=== PATIENT | male | born 1945 | race Caucasian/White ===

== ENCOUNTER 2017-07-09 08:11 | Inpatient (IN) ==
[2017-07-01 14:39] LABS: HEMATOCRIT 34.1 % (42.0-52.0); HEMOGLOBIN 11.5 g/dL (14.0-18.0); MCH 33.1 PG (27-31); MCHC 33.7 g/dL (33-37); MCV 98.3 FL (81-99); MPV 9.3 FL (7.4-10.4); RBC 3.47 XMIL (4.7-6.1)
[2017-07-01 15:16] LABS: AGAP 9; BUN 18 mg/dL (8-22); CALCIUM 9.5 mg/dL (8.8-10.2); CHLORIDE 99 mmol/L (98-107); COSMO 274; POTASSIUM 4.1 mmol/L (3.5-5.1); SODIUM 136 mmol/L (136-145); TCO2 28 mmol/L (25-35)
[2017-07-09] MEDS ORDERED: REGLAN ONE ×2 (08:12)
[2017-07-09] MEDS ORDERED: KEFZOL 2 GM/D5W 2 GM/50 ML IVPB ONE ×2 (08:12)
[2017-07-09] MEDS ORDERED: LR 1,000 ML ONE ×3 (08:12→09:23)
[2017-07-09] MEDS ORDERED: PEPCID ONE ×2 (08:12)
[2017-07-09] MEDS ORDERED: XYLOCAINE-MPF 2% ONE (08:21)
[2017-07-09] MEDS ORDERED: QUELICIN (DOSE) ONE (08:21)
[2017-07-09] MEDS ORDERED: SODIUM CHLORIDE 0.9% 10 ML ONE ×2 (08:21→13:39)
[2017-07-09] MEDS ORDERED: NORCURON ONE ×2 (08:21→13:39)
[2017-07-09] MEDS ORDERED: ROBINUL ONE ×2 (08:21→11:50)
[2017-07-09] MEDS ORDERED: FENTANYL ONE (08:22)
[2017-07-09] MEDS ORDERED: DIPRIVAN 1% ONE (08:22)
[2017-07-09] MEDS ORDERED: B & O 16A SUPP ONE (09:23)
[2017-07-09] MEDS ORDERED: MARCAINE 0.25% PF ONE (09:23)
[2017-07-09] MEDS ORDERED: OFIRMEV 1000 MG/ISOTONIC SOLN 1,000 MG/100 ML BOTTLE ONE (10:33)
[2017-07-09 11:10] LABS: URINE MICRO REVIEW NEEDED? NO; URINE SOURCE CATH
[2017-07-09 11:17] LABS: BILIRUBIN URINE NEGATIVE (NEGATIVE); BLOOD URINE NEGATIVE (NEGATIVE); COLOR YELLOW; GLUCOSE URINE NEGATIVE (NEGATIVE); LEUKOCYTES URINE NEGATIVE (NEGATIVE); NITRITE URINE NEGATIVE (NEGATIVE); PH URINE 7.5; PROTEIN URINE NEGATIVE (NEGATIVE); SP GRAVITY URINE 1.011; TURBIDITY URINE CLEAR (CLEAR); UROBILINOGEN URINE NORMAL (NORMAL)
[2017-07-09 11:18] LABS: UR EPITHELIAL CELLS <10 /HPF (<10); URINE BACTERIA NEGATIVE /HPF; URINE RBC <10 /HPF (<10); URINE WBC <10 /HPF (<10)
[2017-07-09] MEDS ORDERED: NEOSTIGMINE ONE (11:50)
[2017-07-09] MEDS ORDERED: DECADRON ONE (11:50)
[2017-07-09] MEDS ORDERED: ZOFRAN ONE (11:50)
[2017-07-09] MEDS ORDERED: DILAUDID ONE (15:20)
[2017-07-09] MEDS ORDERED: NS 1,000 ML ONE (15:42)
[2017-07-09] MEDS ORDERED: PHENERGAN PO PRN (16:26)
[2017-07-09] MEDS ORDERED: BENADRYL IV PRN (16:26)
[2017-07-09] MEDS ORDERED: PHENERGAN IV PRN (16:26)
[2017-07-09] MEDS ORDERED: BENADRYL LIQUID PO PRN (16:26)
[2017-07-09] MEDS ORDERED: SODIUM CHLORIDE 0.9% INJ PRN (16:26)
[2017-07-09] MEDS ORDERED: DITROPAN PO PRN (16:26)
[2017-07-09] MEDS ORDERED: LABETALOL IV PRN (16:26)
[2017-07-09] MEDS ORDERED: PHENERGAN PR PRN (16:26)
[2017-07-09] MEDS: HUMULIN R SUBQ SCH ×2 (17:59→21:51)
[2017-07-09] MEDS: NS 1,000 ML IV SCH (18:00)
[2017-07-09] MEDS: OXY IR PO PRN (18:14)
[2017-07-09] MEDS: KEFZOL 1 GM/D5W 1 GM/50 ML IVPB IV SCH (18:16)
[2017-07-09] MEDS ORDERED: HALL'S COUGH LOZENGE MT PRN (19:57)
[2017-07-09] MEDS ORDERED: BLISTEX MEDICATED BERRY LIP BALM TOP PRN (19:58)
[2017-07-09] MEDS: COLACE PO SCH (20:03)
[2017-07-09] MEDS: PEPCID PO SCH (20:03)
[2017-07-09] MEDS: PERIDEX MT SCH (20:04)
[2017-07-09] MEDS: MORPHINE IV PRN ×2 (20:04→22:48)
[2017-07-09] MEDS: OFIRMEV 1000 MG/ISOTONIC SOLN 1,000 MG/100 ML BOTTLE IV SCH (22:48)
[2017-07-10] MEDS: KEFZOL 1 GM/D5W 1 GM/50 ML IVPB IV SCH (02:57)
[2017-07-10] MEDS: NS 1,000 ML IV SCH (02:58)
[2017-07-10] MEDS: MORPHINE IV PRN (02:58)
[2017-07-10] MEDS: HUMULIN R SUBQ SCH (04:36)
[2017-07-10] MEDS: OFIRMEV 1000 MG/ISOTONIC SOLN 1,000 MG/100 ML BOTTLE IV SCH ×2 (05:04→12:14)
[2017-07-10 07:27] VITALS: BP 139/64
[2017-07-10] MEDS: OXY IR PO PRN (07:41)
[2017-07-10] MEDS ORDERED: GLUCOPHAGE PO SCH (08:00)
[2017-07-10] MEDS: COLACE PO SCH (08:50)
[2017-07-10] MEDS: PERIDEX MT SCH (08:50)
[2017-07-10] MEDS: PEPCID PO SCH (08:51)
[2017-07-10] MEDS ORDERED: NON-FORMULARY MED PO SCH (09:00)
[2017-07-10] MEDS ORDERED: VITAMIN B-12 PO SCH (09:00)
[2017-07-10] MEDS ORDERED: VITAMIN D PO SCH (09:00)
[2017-07-10] MEDS ORDERED: CLINORIL PO SCH (09:00)
[2017-07-10] MEDS ORDERED: LIPITOR PO SCH (09:00)
[2017-07-10] MEDS ORDERED: ULTRAM PO SCH (09:00)
[2017-07-10] MEDS ORDERED: NEURONTIN PO SCH (21:00)
== END 2017-07-10 12:17 | disposition home or self-care (01) ==
LOC: SURHOLD 08:11 → 4N 16:18
PROVIDERS: ADMIT Urology; ATTEND Urology